=== PATIENT | female | born 1970 | race African-American/Black ===

== ENCOUNTER 2016-09-04 20:02 | Inpatient (IN) | payer MEDICAID, OTHER ==
[~2016-09-04] VITALS: Ht 177.8 cm; Wt 78.0 kg
[~2016-09-04 20:02] MED LIST: BACT800T5 PO; CLIN1CAP5 PO; FLUC10S PO
[2016-09-04 20:05] VITALS: BP 122/77; PULSE 98; RESP 16; TEMP 98.2; O2SAT 100
--- NOTE | 2016-09-04 20:14 | PD ---
HPI Chief Complaint: Lump, Cyst, Hernia Time Seen by Provider: 20:12 Travel History International Travel<30 days: No Contact w/Intl Traveler<30days: No Traveled to known affect area: No History of Present Illness HPI 46 year old female with PMH of MRSA presents to the ED for evaluation of 2 day history of warm, tender lump of the right breast. She denies fever, chills, nausea, vomiting. She states that she expressed a small amount of greenish drainage from the nipple. She has been treating with isopropyl alcohol a couple times a day without improvement of symptoms. The patient reports a greater than 10 year history of a benign lump in the 9 o'clock position of the same breast. She has not had a mammogram in "10 years or so." She currently has no primary care. PFSH Past Medical History Cancer: No Cardiovascular Problems: No Diabetes: No Diminished Hearing: No Endocrine: No Genitourinary: No Hepatitis: No Hiatal Hernia: No Immune Disorder: No Musculoskeletal: No Neurologic: No Psychiatric: No Reproductive: No Respiratory: No Thyroid Disease: No : 10 Para: 4 Miscarriage: 3 : 2 Dilation and Curettage (D&C): Yes (x 2) Past Surgical History AICD: No Body Medical Devices: NONE Section: Yes Gynecologic Surgery: Yes (D&C) Joint Replacement: No Pacemaker: No Other Surgery: Yes (cyst removed right breast years ago) Social History Alcohol Use: No Tobacco Use: No Substance Use: No Allergies-Medications (Allergen,Severity, Reaction): Coded Allergies: *MDRO Multi-Drug Resistant Organism (Unverified Adverse Reaction, Unknown , 09/04/16) MRSA Reported Meds & Prescriptions Reported Meds & Active Scripts Active Clindamycin Hcl (Clindamycin HCl) 150 Mg Cap 300 Mg PO Q8H 10 Days Bactrim DS (Sulfamethoxazole-Trimethoprim DS) 1 Tab Tab 1 Tab PO BID 10 Days Diflucan 10 mg/ml suspension (Fluconazole) 10 Mg/Ml Alice 150 Mg PO DAILY Take after antibiotics are completed. Review of Systems Except as stated in HPI: all other systems reviewed are Neg Physical Exam Narrative GENERAL: Well-nourished, well-developed pleasant black female in no acute distress. SKIN: Focused skin assessment warm/dry. There is warm, tender, mobile, firm mass in the 3 o'clock position, ~1 cm medial of the areola,~2cm below the skin level of the right breast which measures about 2.5 cm in diameter. No erythema , no nipple discharge. There is a subcentimeter erythematous macule in the same area which the patient states is unchanged for "years." HEAD: Normocephalic. EYES: No scleral icterus. No injection or drainage. NECK: Supple, trachea midline. No JVD or lymphadenopathy. CARDIOVASCULAR: Regular rate and rhythm without murmurs, gallops, or rubs. RESPIRATORY: Breath sounds clear and equal bilaterally. No accessory muscle use. GASTROINTESTINAL: Abdomen soft, non-tender, nondistended. Active bowel sounds. MUSCULOSKELETAL: No cyanosis, or edema. Ambulatory, moving spontaneously. BACK: Nontender without obvious deformity. No CVA tenderness. Data Data Last Documented VS Vital Signs Date Time Temp Pulse Resp B/P Pulse Ox O2 Delivery O2 Flow Rate FiO2 09/04/16 20:05 98.2 98 16 122/77 100 Room Air Orders Us Breast Unilateral (09/04/16 ) Complete Blood Count With Diff (09/04/16 20:20) Basic Metabolic Panel (Bmp) (09/04/16 20:20) Iv Access Insert/Monitor (09/04/16 20:23) Sodium Chlor 0.9% 1000 Ml Inj (Ns 1000 M (09/04/16 21:30) Iron/Tibc Profile (09/04/16 21:25) Type And Screen (09/04/16 21:25) Clindamycin Inj (Cleocin Inj) (09/04/16 21:30) Consult General Surgery (09/04/16 ) Admit Order (Ed Use Only) (09/04/16 21:25) Labs Laboratory Tests Test 09/04/16 20:30 White Blood Count 10.5 TH/MM3 Red Blood Count 4.28 MIL/MM3 Hemoglobin 6.8 GM/DL Hematocrit 23.6 % Mean Corpuscular Volume 55.2 FL Mean Corpuscular Hemoglobin 15.8 PG Mean Corpuscular Hemoglobin 28.6 % Concent Red Cell Distribution Width 19.1 % Platelet Count 218 TH/MM3 Mean Platelet Volume 8.8 FL Neutrophils (%) (Auto) 57.8 % Lymphocytes (%) (Auto) 29.4 % Monocytes (%) (Auto) 10.2 % Eosinophils (%) (Auto) 1.6 % Basophils (%) (Auto) 1.0 % Neutrophils # (Auto) 6.1 TH/MM3 Lymphocytes # (Auto) 3.1 TH/MM3 Monocytes # (Auto) 1.1 TH/MM3 Eosinophils # (Auto) 0.2 TH/MM3 Basophils # (Auto) 0.1 TH/MM3 CBC Comment AUTO DIFF Sodium Level 138 MEQ/L Potassium Level 3.6 MEQ/L Chloride Level 107 MEQ/L Carbon Dioxide Level 25.1 MEQ/L Anion Gap 6 MEQ/L Blood Urea Nitrogen 8 MG/DL Creatinine 0.92 MG/DL Estimat Glomerular Filtration 80 ML/MIN Rate Random Glucose 94 MG/DL Calcium Level 7.9 MG/DL MDM Medical Decision Making Medical Screen Exam Complete: Yes Emergency Medical Condition: Yes Differential Diagnosis Cellulitis versus abscess versus non-lactational mastitis versus breast mass versus breast cancer versus other Narrative Course 46 year old female with PMH of MRSA presents to the ED for evaluation of 2 day history of warm, tender lump of the right breast. She denies fever, chills, nausea, vomiting. She states that she expressed a small amount of greenish drainage from the nipple. She has been treating with isopropyl alcohol a couple times a day without improvement of symptoms. The patient reports a greater than 10 year history of a benign lump in the 9 o'clock position of the same breast. She has not had a mammogram in <10 yrs. Vitals reviewed. Physical exam reveals a pleasant black female in no acute distress. There is warm, tender, mobile, firm mass in the 3 o'clock position, ~ 2 cm medial of the areola, ~2cm deep in the right breast which measures about 2.5 cm in diameter. No erythema, no nipple discharge. There is a subcentimeter erythematous macule in the same area which the patient states is unchanged for "years." CBC: WBC 10.5, hemoglobin 6.8, hematocrit 23.6. CMP: Calcium 7.9. Ultrasound reveals a complex collection in the 3 o'clock position measuring 2.3 x 2.3 x 1 cm. I discussed the results of workup with the patient. She does report a history of anemia related to uterine fibroids. Last episode of menorrhagia was 3 months ago, menstrual period lasted 2-3 weeks. She states subsequent periods have lasted 5-6 days with "normal" flow since. LMP 08/08/16. She does report feeling chronically tired and weak. I discussed this patient with Dr. Gavin. We plan to admit her to the medicine service with general surgery consult. Discussed this plan with the patient who is agreeable. I spoke with Dr. Jaime. He will review the ultrasound, likely have IR perform aspiration tomorrow. Dr. Jung agrees to accept the patient to the medical service for observation. Please see their notes for disposition. Margie Shaffer September 04, 2016 20:14
[2016-09-04 20:22] LABS: MEAN CORPUSCULAR HGB CONC 28.6 % (32.0-36.0)
[2016-09-04 20:44] LABS: AUTOMATED NEUTROPHIL # 6.1 TH/MM3 (1.8-7.7); BASOPHIL # 0.1 TH/MM3 (0-0.2); EOSINOPHIL # 0.2 TH/MM3 (0-0.4); EOSINOPHIL % 1.6 % (0.0-4.0); HEMATOCRIT 23.6 % (35.0-46.0); LYMPH % 29.4 % (9.0-44.0); LYMPHOCYTE # 3.1 TH/MM3 (1.0-4.8); MEAN CELL VOLUME 55.2 FL (80.0-100.0); MEAN CORPUSCULAR HEMOGLOBIN 15.8 PG (27.0-34.0); MONO % 10.2 % (0.0-8.0); NEUT % 57.8 % (16.0-70.0); PLATELET COUNT 218 TH/MM3 (150-450); RED BLOOD COUNT 4.28 MIL/MM3 (4.00-5.30); RED CELL DISTRIBUTION WIDTH 19.1 % (11.6-17.2); WHITE BLOOD COUNT 10.5 TH/MM3 (4.0-11.0)
[2016-09-04 20:50] LABS: HEMO FLAGS AUTO DIFF
[2016-09-04 21:05] LABS: ANION GAP 6 MEQ/L (5-15); BICARBONATE 25.1 MEQ/L (21.0-32.0); BLOOD UREA NITROGEN 8 MG/DL (7-18); CHLORIDE 107 MEQ/L (98-107); GLOMERULAR FILTRATION RATE 80 ML/MIN (>89); POTASSIUM 3.6 MEQ/L (3.5-5.1); SODIUM (NA) 138 MEQ/L (136-145)
--- NOTE | 2016-09-04 21:14 | RADRPT ---
EXAM DATE/TIME: 09/04/2016 20:29 [facility] COMPARISON: No previous studies available for comparison. INDICATIONS : Right breast abscess. MEDICAL HISTORY : Lump in right breast. MRSA. SURGICAL HISTORY : Dilation and curettage. ENCOUNTER: Initial ACUITY: 2 days PAIN SCORE: 8/10 LOCATION: Right breast FINDINGS: Multiple sonographic images of the right breast were performed and demonstrate a small complex collec tion at 3 o'clock 1 cm from the right nipple measuring 2.3 x 2.3 x 1.0 cm in size. This may represen t a small abscess. Clinical correlation is recommended. CONCLUSION: Small focal complex subcutaneous collection at 3 o'clock 1 cm from the right nipple measuring 2.3 x 2 .3 x 1.0 cm raising the possibility of small subcutaneous abscess. Clinical correlation is recommend ed. Geoffrey Vyas MD on September 04, 2016 at 21:05 Board Certified Radiologist. This report was verified electronically.
[2016-09-04] MEDS ORDERED: SODIUM CHLOR 0.9% 1000 ML INJ 1,000 ML IV ONE ×2 (21:30→21:45)
[2016-09-04] MEDS ORDERED: CLINDAMYCIN INJ 900 MG in SODIUM CHLORIDE 0.9% INJ 100 ML IV ONE (21:30)
--- NOTE | 2016-09-04 21:38 | HHI.HP ---
HPI Service [facility] Primary Care Physician No Primary Care Physician Admission Diagnosis right breast abscess, anemia Diagnoses: (1) Breast abscess Diagnosis: Principal (2) Anemia Diagnosis: Principal (3) Dehydration Diagnosis: Principal Travel History International Travel<30 Days: No Contact w/Intl Traveler <30 Da: No Traveled to Known Affected Are: No History of Present Illness This is a 46-year-old female with a PMH of Fibroids and Anemia who presented to the ER w/ complaints of right breast lump w/ tenderness and drainage x2 days. Also reports green discharge from nipple. Denies fever, chills. History of similar symptoms in the past, however >10yrs ago. On arrival, BP 122/77, HR 98 , O2 sat 100% on RA, Afebrile. Hgb 6.8. GFR 80. Known h/o anemia, instructed to take Iron daily, however non-compliant. Denies h/o transfusion in the past, but reports heavy/long periods. Breast US w/ small focal complex 3 o'clock position w/ small abscess. Dr. Garrido consulted by ER physicianubaldo in am for I&D. S/p Clinda in ER. 2u pRBC ordered, pending transfusion. Review of Systems Except as stated in HPI: all other systems reviewed are Neg ROS: 14 point review of systems otherwise negative. Past Family Social History Past Medical History PMH: Fibroids and Anemia Past Surgical History PAST SURGICAL HISTORY: , D&C Allergies: Coded Allergies: *MDRO Multi-Drug Resistant Organism (Unverified Adverse Reaction, Unknown , 09/04/16) MRSA Family History PAST FAMILY HISTORY: Reviewed. No h/o DM or CAD Social History PAST SOCIAL HISTORY: Negative for alcohol, tobacco or drugs. Physical Exam Vital Signs Vital Signs Date Time Temp Pulse Resp B/P Pulse Ox O2 Delivery O2 Flow Rate FiO2 09/04/16 20:05 98.2 98 16 122/77 100 Room Air Physical Exam PE: GENERAL: Very pleasant middle-aged black female in no acute distress. HEENT: PERRLA, EOMI. No scleral icterus or conjunctival pallor. No lid lag or facial droop. CARDIOVASCULAR: Regular rate and rhythm. No obvious murmurs to auscultation. No chest tenderness to palpation. Right breast abscess, no drainage noted. RESPIRATORY: No obvious rhonchi or wheezing. Clear to auscultation. Breath sounds equal bilaterally. GASTROINTESTINAL: Abdomen soft, non-tender, nondistended. BS normal. MUSCULOSKELETAL: Extremities without clubbing, cyanosis, or edema. No obvious deformities. NEUROLOGICAL: Awake, alert and oriented x4. No focal neurologic deficits. Moving both upper and lower extremities spontaneously. Laboratory Laboratory Tests Test 09/04/16 20:30 White Blood Count 10.5 Red Blood Count 4.28 Hemoglobin 6.8 Hematocrit 23.6 Mean Corpuscular Volume 55.2 Mean Corpuscular Hemoglobin 15.8 Mean Corpuscular Hemoglobin 28.6 Concent Red Cell Distribution Width 19.1 Platelet Count 218 Mean Platelet Volume 8.8 Neutrophils (%) (Auto) 57.8 Lymphocytes (%) (Auto) 29.4 Monocytes (%) (Auto) 10.2 Eosinophils (%) (Auto) 1.6 Basophils (%) (Auto) 1.0 Neutrophils # (Auto) 6.1 Lymphocytes # (Auto) 3.1 Monocytes # (Auto) 1.1 Eosinophils # (Auto) 0.2 Basophils # (Auto) 0.1 CBC Comment AUTO DIFF Sodium Level 138 Potassium Level 3.6 Chloride Level 107 Carbon Dioxide Level 25.1 Anion Gap 6 Blood Urea Nitrogen 8 Creatinine 0.92 Estimat Glomerular Filtration 80 Rate Random Glucose 94 Calcium Level 7.9 Result Diagram: 09/04/16202909/04/162029 Assessment and Plan Problem List: (1) Breast abscess ICD Code: N61.1 Status: Acute (2) Anemia ICD Code: D64.9 Status: Acute (3) Dehydration ICD Code: E86.0 Status: Acute Assessment and Plan A/P: 1. Breast Abscess: Right Breast Abscess x2 days, reports green nipple discharge. Afebrile, no leukocytosis. Breast US w/ small focal complex at 3 o' clock position likely subcutaneous abscess, images reviewed by me. Dr. Garrido consulted by ER physician, will eval in am for I&D. S/p Clinda in ER, will continue w/ IV Abx. 2. Anemia: Microcytic, secondary to heavy/prolonged menstrual periods. Hgb 6.8. 2u pRBC ordered in ER, pending transfusion. Repeat labs following transfusion. Start Iron therapy. Will need outpatient follow-up w/ [employer] for eval of menstrual bleeding due to fibroid uterus. 3. Dehydration: GFR 80. BUN/Creatinine normal. IVF for hydration. Repeat labs in am. 4. DVT Prophylaxis: SCD/Teds. 5. Social work for d/c planning as needed. 6. Case discussed w/ ER physician at length. Kelsie Jung MD September 04, 2016 21:38
[2016-09-04 21:39] LABS: MEAN CORPUSCULAR HGB CONC 28.3 % (32.0-36.0)
[2016-09-04] MEDS ORDERED: ONDANSETRON HCL 4 MG/2 ML VIAL IVP PRN (21:45)
[2016-09-04] MEDS ORDERED: SODIUM CHLORIDE 0.9% FLUSH 10 ML FLUSH IV FLUSH PRN (21:45)
[2016-09-04] MEDS ORDERED: SENNOSIDES 8.6 MG TAB PO PRN (21:45)
[2016-09-04] MEDS ORDERED: ACETAMINOPHEN 325 MG TAB PO PRN (21:45)
[2016-09-04] MEDS ORDERED: MAGNESIUM HYDROXIDE SUSP 30 ML CUP PO PRN (21:45)
[2016-09-04] MEDS ORDERED: ACETAMINOPHEN/HYDROcodone 325 MG/5 MG TAB PO PRN (21:45)
[2016-09-04] MEDS ORDERED: ACETAMINOPHEN/HYDROcodone 325 MG/10 MG TAB PO PRN (21:45)
[2016-09-04] MEDS ORDERED: BISACODYL 10 MG SUPP RECTAL PRN (21:45)
[2016-09-04] MEDS ORDERED: LACTULOSE SYRUP 20 GM/30 ML CUP PO PRN (21:45)
[2016-09-04 22:16] LABS: PLATELET ESTIMATE SMEAR NORMAL (NORMAL); PLATELET MORPHOLOGY NORMAL (NORMAL); SCAN/DIFF AUTO DIFF CONFIRMED
[2016-09-04 23:20] VITALS: BP 110/69; PULSE 88; RESP 16; TEMP 98.9; O2SAT 100
[2016-09-04] MEDS ORDERED: LIDOCAINE 1%/EPINEPHrine 1:100,000 SOLN 50 ML VIAL ONE (23:25)
[2016-09-04 23:49] LABS: TRANSFERRIN IRON PROFILE 257 MG/DL (200-360)
[2016-09-04 23:53] VITALS: BP 126/71; PULSE 83; RESP 22; TEMP 99.6; O2SAT 100
[2016-09-05] VITALS (13 sets, daily range): BP systolic 95–125; BP diastolic 56–74; PULSE 65–82; RESP 16–22; TEMP 97–99; O2SAT 97–100
[2016-09-05] MEDS: CLINDAMYCIN INJ 900 MG in SODIUM CHLORIDE 0.9% INJ 100 ML IV SCH ×3 (05:30→22:57)
[2016-09-05 06:38] LABS: AUTOMATED NEUTROPHIL # 4.1 TH/MM3 (1.8-7.7); BASOPHIL # 0.1 TH/MM3 (0-0.2); BASOPHIL % 0.8 % (0.0-2.0); EOSINOPHIL # 0.1 TH/MM3 (0-0.4); LYMPH % 33.7 % (9.0-44.0); LYMPHOCYTE # 2.7 TH/MM3 (1.0-4.8); MEAN CELL VOLUME 55.5 FL (80.0-100.0); MEAN CORPUSCULAR HEMOGLOBIN 15.7 PG (27.0-34.0); MONO % 13.7 % (0.0-8.0); NEUT % 50.8 % (16.0-70.0); PLATELET COUNT 178 TH/MM3 (150-450); RED BLOOD COUNT 3.73 MIL/MM3 (4.00-5.30)
[2016-09-05 06:46] LABS: HEMO FLAGS DIFF FINAL
[2016-09-05 06:49] LABS: HEMATOCRIT 20.7 % (35.0-46.0)
[2016-09-05 06:56] LABS: MEAN CORPUSCULAR HGB CONC 29.8 % (32.0-36.0)
[2016-09-05 07:07] LABS: ALKALINE PHOSPHATASE 49 U/L (45-117); ALT (GPT) 12 U/L (10-53); ANION GAP 8 MEQ/L (5-15); AST (GOT) 12 U/L (15-37); BICARBONATE 22.4 MEQ/L (21.0-32.0); BLOOD UREA NITROGEN 7 MG/DL (7-18); CHLORIDE 111 MEQ/L (98-107); GLOMERULAR FILTRATION RATE 111 ML/MIN (>89); POTASSIUM 3.6 MEQ/L (3.5-5.1); SODIUM (NA) 141 MEQ/L (136-145); TOTAL BILIRUBIN ADULT 0.2 MG/DL (0.2-1.0)
--- NOTE | 2016-09-05 08:30 | MB ---
cc: RAJ LEVINE DATE OF CONSULTATION: 09/05/2016 PHYSICIAN REQUESTING CONSULTATION The emergency room physician, [address] REASON FOR CONSULTATION Right breast abscess. HISTORY OF PRESENT ILLNESS The patient is a 46-year-old female with no previous history of breast problems. However, she had a previous breast biopsy which was negative remotely, who developed swelling and pain in the medial portion 3 o'clock of her right breast. They thought this was an abscess and was putting heating pad, however, this continued to increase in pain and presented to the emergency department at [facility]. Upon evaluation the patient was found to be anemic and underwent admission to the medical service for anemia. General surgery is consulted for evaluation of the patient's right breast pain, possible abscess. Ultrasound of the breast showed subcutaneous abscess in the area. The patient's white blood cell count was within normal limits. Patient has been afebrile. REVIEW OF SYSTEMS 12-point review of systems was conducted with the patient today and was negative except for the pertinent positives mentioned above in history present illness. PAST MEDICAL HISTORY Anemia. PAST SURGICAL HISTORY and D&C. ALLERGIES None. FAMILY HISTORY No history of breast cancer or ovarian cancer. SOCIAL HISTORY The patient occasionally uses tobacco. Denies chronic use of tobacco. Denies drugs or alcohol use. PHYSICAL EXAMINATION VITAL SIGNS: Temperature 98.2 degrees, pulse 98, respiratory rate 16, blood pressure 122/77. GENERAL: The patient is a well-developed, well-nourished -[place] female in no acute distress. HEENT: Head is normocephalic, atraumatic. Pupils round, reactive to light and accomoodation. Sclerae is anicteric. Mucous membranes are moist. NECK: Neck is supple. No JVD. LUNGS: Clear to auscultation bilaterally. HEART: Regular rate and rhythm. ABDOMEN: Soft, nondistended. EXTREMITIES: No clubbing, cyanosis or edema. BREAST EXAM: Focal exam on the right breast was no masses or abnormalities, no nipple drainage. There is some hard, indurated area in the medial three o'clock portion of the right breast concerning for possible abscess versus clogged milk duct. The patient underwent aspiration by myself in the emergency department which revealed some proteinaceous clotting material without purulence. This was sent for culture. NEUROLOGIC: The patient is awake, alert, oriented x3. Nonfocal peripheral exam. Cranial nerves II-XII are grossly intact. ASSESSMENT/PLAN The patient is a 46-year-old -[place] female with anemia and right breast pain. The patient does not have a breast abscess as this was aspirated and it represents likely a clogged milk duct and mastitis without abscess formation. I do agree with empiric antibiotics and precautionary. I did discuss with the patient that this was unlikely an abscess but a milk duct problem and would likely need to follow up for this and provided my information to her. I also stated that although breast cancer is unlikely, that this has not been ruled out on our evaluation and will need follow-up with a primary care doctor and/or myself for appropriate imaging to rule out malignancy. She understands this and will followup with Dr. Oliveira or myself. Recommend continued dry gauze to the right breast as drainage continues and the patient can follow up with myself in 2 weeks. Thank you very much for this consultation. Call if needed, will be available, will sign off. MD MIKE Scott/TLL /7:16 AM /7:58 AM
--- NOTE | 2016-09-05 08:37 | HHI.PR ---
Subjective Remarks Follow up right breast abscess and anemia. Patient denies any active bleeding, last menstrual cycle was 08/13/16 and last 5 days, she states it was a normal flow for her. Last heavy month long cycle was May 2016. 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 Denies any black or red colored stools. States she is suppose to take iron supplements daily, but does not. She denies any pain to right breast, chest pain or sob. Objective Vitals Vital Signs Date Time Temp Pulse Resp B/P Pulse Ox O2 Delivery O2 Flow Rate FiO2 09/05/16 04:05 99.0 66 18 118/74 97 09/04/16 23:53 99.6 83 22 126/71 100 09/04/16 23:20 98.9 88 16 110/69 100 09/04/16 20:05 98.2 98 16 122/77 100 Room Air I/O 09/04/16 09/04/16 09/04/16 09/05/16 09/05/16 09/05/16 07:00 15:00 23:00 07:00 15:00 23:00 Intake Total 1900 ml Balance 1900 ml Intake Oral 200 ml IV Total 1700 ml # Voids 1 Result Diagram: 09/05/1662209/05/16622 Objective Remarks GENERAL: Very pleasant middle-aged black female in no acute distress. HEENT: PERRLA, EOMI. No scleral icterus or conjunctival pallor. No lid lag or facial droop. CARDIOVASCULAR: Regular rate and rhythm. No obvious murmurs to auscultation. No chest tenderness to palpation. BREAST: Right breast dressing D&I, no drainage noted. RESPIRATORY: No obvious rhonchi or wheezing. Clear to auscultation. Breath sounds equal bilaterally. GASTROINTESTINAL: Abdomen soft, non-tender, nondistended. BS normal. MUSCULOSKELETAL: Extremities without clubbing, cyanosis, or edema. No obvious deformities. NEUROLOGICAL: Awake, alert and oriented x4. No focal neurologic deficits. Moving both upper and lower extremities spontaneously. Medications and IVs Last Impressions Breast Ultrasound 09/04/16 0000 Signed Impressions: Service Date/Time: Sunday, September 04, 2016 20:29 - CONCLUSION: Small focal complex subcutaneous collection at 3 o'clock 1 cm from the right nipple measuring 2.3 x 2.3 x 1.0 cm raising the possibility of small subcutaneous abscess. Clinical correlation is recommended. Geoffrey Vyas MD A/P Problem List: (1) Breast abscess ICD Code: N61.1 Status: Acute (2) Anemia ICD Code: D64.9 Status: Acute (3) Dehydration ICD Code: E86.0 Status: Acute Assessment and Plan This is a 46-year-old female with a PMH of Fibroids and Anemia who presented to the ER w/ complaints of right breast lump w/ tenderness and drainage x2 days. Breast Abscess, needle aspiration completed in ED, no leukocytosis or fevers, per surgery likely a clogged milk duct and mastitis Breast US showed a right breast abscess 2.3 x2.3 x1.0 -Cont Clindamycin IV, pt states she usually gets a yeast infection after antibiotics, will need Diflucan post antibiotics -General surgery consulted, recommended continued dry gauze and follow up in 2 weeks -CBC in AM Anemia, chronic, patient in non compliant with iron supplements, hx of fibroids Hgb dropped from 6.8-->5.8, no active bleeding noted, iron low at 17 -Transfuse 3 units PRBCs, 1st is currently infusing, hgb post transfusion -Consult GI for possible GI bleed and recommendations, will await Hemoccult, if positive with do EGD/colon -Hemoccult pending -Follow up outpatient for fibroid treatment and pap smear -Ferritin level low, will reorder iron supplements post transfusions, along with Colace -Serial H&H DVT prophylaxis: SCDs Discharge Planning Pending GI work up and Hemoccult Susan Hines September 05, 2016 08:37
[2016-09-05] MEDS: DOCUSATE SODIUM 50 MG/SENNA 8.6 MG TAB PO SCH ×2 (09:00→21:00)
[2016-09-05] MEDS: SODIUM CHLORIDE 0.9% FLUSH 10 ML FLUSH IV FLUSH SCH ×2 (09:00→21:00)
--- NOTE | 2016-09-05 09:40 | PD.CONS ---
HPI History of Present Illness This is a 46 year old [lady] who presented to ER last night for right breast pain and lump. SHe was found to have a drop in Hgb from 6.8 to 5.9 over night. SHe is receiving blood. She says previously, May she bled vaginally for a month straight and that while the last 2 months have been okay, it has been a problem before. Denies hematemesis, blood in stool, blood on wipe, black stools. Pt says she has had heavy periods since a miscarriage and a "bad" d&c and found out she has fibroids and has had heavy periods since then, about 2 years. SHe admits anemia in the past and is admittedly noncompliant with Fe supplement. Denies change in bowel habits, diarrhea, constipation. Denies frequent ASA, NSAID use. Never had colonoscopy or endoscopy. 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 No h/o DM or CAD Social History occasional tobacco occasional etoh no illicit drug use (Heidi Trinidad) Review of Systems Constitutional: DENIES: Fever Eyes: DENIES: Blurred vision Ears, nose, mouth, throat: DENIES: Hearing loss Respiratory: DENIES: Cough Cardiovascular: DENIES: Chest pain Gastrointestinal: DENIES: Abdominal pain, Black stools, Bloody stools, Constipation, Diarrhea, Nausea, Vomiting, Hematemesis Genitourinary: DENIES: Hematuria Musculoskeletal: DENIES: Muscle aches Integumentary: DENIES: Abnormal pigmentation Hematologic/lymphatic: DENIES: Bruising Neurologic: DENIES: Abnormal gait Psychiatric: DENIES: Confusion (Heidi Trinidad) GI Exam Vitals I&O Vital Signs Date Time Temp Pulse Resp B/P Pulse Ox O2 Delivery O2 Flow Rate FiO2 09/05/16 04:05 99.0 66 18 118/74 97 09/04/16 23:53 99.6 83 22 126/71 100 09/04/16 23:20 98.9 88 16 110/69 100 09/04/16 20:05 98.2 98 16 122/77 100 Room Air I/O 09/04/16 09/04/16 09/04/16 09/05/16 09/05/16 09/05/16 07:00 15:00 23:00 07:00 15:00 23:00 Intake Total 1900 ml Balance 1900 ml Intake Oral 200 ml IV Total 1700 ml # Voids 1 Imaging Last Impressions Breast Ultrasound 09/04/16 0000 Signed Impressions: Service Date/Time: Sunday, September 04, 2016 20:29 - CONCLUSION: Small focal complex subcutaneous collection at 3 o'clock 1 cm from the right nipple measuring 2.3 x 2.3 x 1.0 cm raising the possibility of small subcutaneous abscess. Clinical correlation is recommended. Geoffrey Vyas MD Laboratory Test 09/04/16 09/04/16 09/05/16 09/05/16 20:30 23:05 06:15 06:23 White Blood Count 10.5 TH/MM3 8.0 TH/MM3 Red Blood Count 4.28 MIL/MM3 3.73 MIL/MM3 Hemoglobin 6.8 GM/DL 5.9 GM/DL Hematocrit 23.6 % 20.7 % Mean Corpuscular Volume 55.2 FL 55.5 FL Mean Corpuscular Hemoglobin 15.8 PG 15.7 PG Mean Corpuscular Hemoglobin 28.6 % 28.3 % Concent Red Cell Distribution Width 19.1 % 19.0 % Platelet Count 218 TH/MM3 178 TH/MM3 Mean Platelet Volume 8.8 FL 8.6 FL Neutrophils (%) (Auto) 57.8 % 50.8 % Lymphocytes (%) (Auto) 29.4 % 33.7 % Monocytes (%) (Auto) 10.2 % 13.7 % Eosinophils (%) (Auto) 1.6 % 1.0 % Basophils (%) (Auto) 1.0 % 0.8 % Neutrophils # (Auto) 6.1 TH/MM3 4.1 TH/MM3 Lymphocytes # (Auto) 3.1 TH/MM3 2.7 TH/MM3 Monocytes # (Auto) 1.1 TH/MM3 1.1 TH/MM3 Eosinophils # (Auto) 0.2 TH/MM3 0.1 TH/MM3 Basophils # (Auto) 0.1 TH/MM3 0.1 TH/MM3 CBC Comment AUTO DIFF DIFF FINAL Differential Comment AUTO DIFF CONFIRMED Platelet Estimate NORMAL Platelet Morphology Comment NORMAL Sodium Level 138 MEQ/L 141 MEQ/L Potassium Level 3.6 MEQ/L 3.6 MEQ/L Chloride Level 107 MEQ/L 111 MEQ/L Carbon Dioxide Level 25.1 MEQ/L 22.4 MEQ/L Anion Gap 6 MEQ/L 8 MEQ/L Blood Urea Nitrogen 8 MG/DL 7 MG/DL Creatinine 0.92 MG/DL 0.69 MG/DL Estimat Glomerular Filtration 80 ML/MIN 111 ML/MIN Rate Random Glucose 94 MG/DL 94 MG/DL Calcium Level 7.9 MG/DL 7.6 MG/DL Iron Level 17 MCG/DL Total Iron Binding Capacity 360 MCG/DL Percent Iron Saturation 4.7 % Blood Type AB POSITIVE Antibody Screen POSITIVE Prewarmed Antibody Screen NEGATIVE Direct Antiglobulin Test NEGATIVE ([place]) Crossmatch Leukocyte-Reduced Red Blood Cells Blood Bank Comment Antibody Identification Non-Specific Cold Agglutinin Total Bilirubin 0.2 MG/DL Aspartate Amino Transf 12 U/L (AST/SGOT) Alanine Aminotransferase 12 U/L (ALT/SGPT) Alkaline Phosphatase 49 U/L Total Protein 6.4 GM/DL Albumin 2.6 GM/DL Test 09/05/16 07:47 Blood Type AB POSITIVE Blood Bank Comment Physical Examination HEENT: EOMI; normocephalic; atraumatic; no jaundice. CHEST: CTA CARDIAC: Rrr ABDOMEN: Soft, nondistended, nontender; no hepatosplenomegaly; bowel sounds are present in all four quadrants. EXTREMITIES: No clubbing, cyanosis, or edema. SKIN: Normal; no rash; no jaundice. 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 (Heidi Trinidad) Assessment and Plan Plan ASSESSMENT - anemia - hypochromic, microcytic. dropped from 6.8 yesterday to 5.9 today. pt has hx fibroids and heavy periods in last year, May 2016 her period lasted a month. Denies hematochezia, hematemesis, tarry stools. Admits to chronic anemia and noncompliance with FE supplementation. Receiving blood transfusion. hemoccult pending. PLAN - await results hemoccult - if pos consider EGD/colonoscopy - f/u with production superintendent - monitor HH - transfuse as needed - supportive care This pt seen by myself and Dr Tom and this note is written on his behalf. 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 Will follow up with you. (Mely Tom MD) Heidi Trinidad September 05, 2016 09:40 Mely Tom MD September 05, 2016 11:50
[2016-09-05 10:36] LABS: FERRITIN 4 NG/ML (8-252)
[2016-09-05 18:40] LABS: HEMATOCRIT 30.4 % (35.0-46.0); MEAN CELL VOLUME 62.7 FL (80.0-100.0); MEAN CORPUSCULAR HEMOGLOBIN 18.7 PG (27.0-34.0); PLATELET COUNT 168 TH/MM3 (150-450); RED BLOOD COUNT 4.84 MIL/MM3 (4.00-5.30); RED CELL DISTRIBUTION WIDTH 28.9 % (11.6-17.2); WHITE BLOOD COUNT 7.7 TH/MM3 (4.0-11.0)
[2016-09-05 18:41] LABS: REVIEW FLAG FINAL
[2016-09-05 19:03] LABS: PROTHROMBIN TIME - PATIENT 10.6 SEC (9.8-11.6)
[2016-09-06] VITALS: BP 105/60; PULSE 70; RESP 19; TEMP 98.3; O2SAT 100
[2016-09-06 05:00] VITALS: BP 108/61; PULSE 69; RESP 18; TEMP 98.6; O2SAT 97
[2016-09-06] MEDS: CLINDAMYCIN INJ 900 MG in SODIUM CHLORIDE 0.9% INJ 100 ML IV SCH (05:10)
[2016-09-06 08:00] VITALS: BP 106/71; PULSE 63; RESP 18; TEMP 97.6; O2SAT 97
[2016-09-06] MEDS: DOCUSATE SODIUM 50 MG/SENNA 8.6 MG TAB PO SCH (08:05)
[2016-09-06] MEDS: SODIUM CHLORIDE 0.9% FLUSH 10 ML FLUSH IV FLUSH SCH (08:15)
[2016-09-06] MEDS ORDERED: FERROUS SULFATE 325 MG (65 MG ELEMENTAL IRON) TAB PO SCH (11:00)
[2016-09-06] MEDS ORDERED: SENN1TAB PO (11:04)
[2016-09-06] MEDS ORDERED: CLIN1CAP6 PO (11:04)
[2016-09-06] MEDS ORDERED: FERR325T20 PO (11:04)
[2016-09-06] MEDS ORDERED: HYDR-3516 PO (11:19)
[2016-09-06] MEDS ORDERED: DIFL150T PO (11:19)
[2016-09-06 12:00] VITALS: BP 112/67; PULSE 68; RESP 20; TEMP 97.9; O2SAT 100
[2016-09-06] MEDS ORDERED: CLINDAMYCIN 150 MG CAP PO SCH (12:00)
--- NOTE | 2016-09-06 16:53 | HHI.DS ---
cc: Talha Garrido MD Discharge Summary Admission Date September 05, 2016 at 07:45 Discharge Date: September 06, 2016 Admitting Diagnosis right breast abscess, anemia (1) Breast abscess ICD Code: N61.1 Diagnosis: Principal (2) Anemia ICD Code: D64.9 Diagnosis: Principal (3) Dehydration ICD Code: E86.0 Diagnosis: Principal Procedures Right breast abscess needle aspiration 09/05/16 Brief History - From Admission This is a 46-year-old female with a PMH of Fibroids and Anemia who presented to the ER w/ complaints of right breast lump w/ tenderness and drainage x2 days. Also reports green discharge from nipple. Denies fever, chills. History of similar symptoms in the past, however >10yrs ago. On arrival, BP 122/77, HR 98 , O2 sat 100% on RA, Afebrile. Hgb 6.8. GFR 80. Known h/o anemia, instructed to take Iron daily, however non-compliant. Denies h/o transfusion in the past, but reports heavy/long periods. Breast US w/ small focal complex 3 o'clock position w/ small abscess. Dr. Garrido consulted by ER physicianubaldo in am for I&D. S/p Clinda in ER. 2u pRBC ordered, pending transfusion. CBC/BMP: 09/06/16 1013 09/05/16 0623 Significant Findings Laboratory Tests Test 09/04/16 09/04/16 09/05/16 09/05/16 20:30 23:05 06:23 18:14 Hemoglobin 6.8 GM/DL 5.9 GM/DL 9.1 GM/DL (11.6-15.3) (11.6-15.3) (11.6-15.3) Hematocrit 23.6 % 20.7 % 30.4 % (35.0-46.0) (35.0-46.0) (35.0-46.0) Mean Corpuscular Volume 55.2 FL 55.5 FL 62.7 FL (80.0-100.0) (80.0-100.0) (80.0-100.0) Mean Corpuscular Hemoglobin 15.8 PG 15.7 PG 18.7 PG (27.0-34.0) (27.0-34.0) (27.0-34.0) Mean Corpuscular Hemoglobin 28.6 % 28.3 % 29.8 % Concent (32.0-36.0) (32.0-36.0) (32.0-36.0) Red Cell Distribution Width 19.1 % 19.0 % 28.9 % (11.6-17.2) (11.6-17.2) (11.6-17.2) Monocytes (%) (Auto) 10.2 % 13.7 % (0.0-8.0) (0.0-8.0) Monocytes # (Auto) 1.1 TH/MM3 1.1 TH/MM3 (0-0.9) (0-0.9) Estimat Glomerular Filtration 80 ML/MIN (>89) Rate Calcium Level 7.9 MG/DL 7.6 MG/DL (8.5-10.1) (8.5-10.1) Iron Level 17 MCG/DL (50-170) Percent Iron Saturation 4.7 % (20-50) Antibody Screen POSITIVE Red Blood Count 3.73 MIL/MM3 (4.00-5.30) Chloride Level 111 MEQ/L (98-107) Ferritin 4 NG/ML (8-252) Aspartate Amino Transf 12 U/L (15-37) (AST/SGOT) Albumin 2.6 GM/DL (3.4-5.0) Test 09/06/16 09/06/16 02:03 10:13 Hemoglobin 9.1 GM/DL 9.5 GM/DL (11.6-15.3) (11.6-15.3) Imaging Last Impressions Breast Ultrasound 09/04/16 0000 Signed Impressions: Service Date/Time: Sunday, September 04, 2016 20:29 - CONCLUSION: Small focal complex subcutaneous collection at 3 o'clock 1 cm from the right nipple measuring 2.3 x 2.3 x 1.0 cm raising the possibility of small subcutaneous abscess. Clinical correlation is recommended. Geoffrey Vyas MD PE at Discharge GENERAL: Very pleasant middle-aged black female in no acute distress. HEENT: PERRLA, EOMI. No scleral icterus or conjunctival pallor. No lid lag or facial droop. CARDIOVASCULAR: Regular rate and rhythm. No obvious murmurs to auscultation. No chest tenderness to palpation. BREAST: Right breast dressing D&I, no drainage noted. RESPIRATORY: No obvious rhonchi or wheezing. Clear to auscultation. Breath sounds equal bilaterally. GASTROINTESTINAL: Abdomen soft, non-tender, nondistended. BS normal. MUSCULOSKELETAL: Extremities without clubbing, cyanosis, or edema. No obvious deformities. NEUROLOGICAL: Awake, alert and oriented x4. No focal neurologic deficits. Moving both upper and lower extremities spontaneously. Pt update on day of discharge Patient seen and examined. Denies any active bleeding. Slight tenderness with palpation to right breast, no drainage. Denies any chest pain or sob. She is requesting a Diflucan at discharge, she states she always gets a yeast infection with antibiotic use. Patient is stable to be discharged. Hospital Course 46-year-old female with a PMH of Fibroids and Anemia who presented to the ER w/ complaints of right breast lump w/ tenderness and drainage x2 days. Breast Abscess, needle aspiration completed in ED by Dr. Garrido, no leukocytosis or fevers, per surgery likely a clogged milk duct and mastitis Breast US showed a right breast abscess 2.3 x2.3 x1.0, Received Clindamycin IV in hospital, Pt remained stable, discharged on Clindamycin PO 450mg Q6 for 13 days, She will follow up with surgery in 2 weeks. [place] rx 5/325 15 tabs given for pain management. Pt states she usually gets a yeast infection after antibiotics, Diflucan PO PRN given x 1 for post antibiotic use. Patient verbalizes understanding of medications and need for follow up. Patient admitted with Anemia, chronic, patient in non compliant with iron supplements, hx of fibroids, Hgb dropped from 6.8-->5.8, no active bleeding noted, iron low at 17. 3 units PRBCs were transfused. Hgb improved to 9.5 and remained stable. Iron supplements started 325mg BID, Instructed patient to take with laxative if constipation occurs. GI was consulted, Hemoccult negative, supportive care recommended. 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 Patient verbalizes understanding. Patient has remained stable for discharge. Pt Condition on Discharge: Stable Discharge Disposition: Discharge Home Discharge Time: > 30 minutes Discharge Instructions DIET: Follow Instructions for: As Tolerated, No Restrictions Activities you can perform: Regular-No Restrictions Follow up Referrals: [facility] - 2 Weeks PCP Follow-up - 2-3 Days Surgical - 2 Weeks with Talha Garrido MD New Medications: Clindamycin (Clindamycin) 300 Mg Cap 450 MG PO Q6H Infection Days 13 Ref 0 CAP Fluconazole (Diflucan) 150 Mg Tab 150 MG PO ONCE PRN yeast infection #1 Ref 0 TAB Ferrous Sulfate (Ferosul) 325 Mg Tablet 325 MG PO BID iron supplementation #60 Ref 0 TAB Hydrocodone-Acetaminophen (Hydrocodone-Acetaminophen) 5-325 mg Tab 1 TAB PO Q6HR PRN pain 5-10 #15 TAB Sennosides-Docusate Sodium (Senna Plus 8.6-50 mg) 1 Tab Tab 1 TAB PO BID Constipation #60 TAB Continued Medications: Fluconazole 10 mg/ml suspension (Diflucan 10 mg/ml suspension) 10 Mg/Ml [place] 150 MG PO DAILY Take after antibiotics are completed. #1 TAB Discontinued Medications: Clindamycin Hcl (Clindamycin Hcl) 150 Mg Cap 300 MG PO Q8H Days 10 CAP Sulfamethoxazole-Trimethoprim DS (Bactrim DS) 1 Tab Tab 1 TAB PO BID Days 10 TAB Susan Hines September 06, 2016 16:53
== END 2016-09-06 13:19 | disposition home or self-care (01) | DRG 601 ==
LOC: NEPC 20:02 → NEDA 21:31 → NEPGCP 23:43 → OBSVTOIN 09-05 07:45 → HOCA 09-05 16:41 → HOCB 09-05 16:59 → HOCA 09-05 17:02
PROVIDERS: ADMIT Internal Medicine; ATTEND Internal Medicine
PROC: 0H9T3ZZ Drainage of Right Breast, Percutaneous Approach (ICD-10-PCS; principal; 2016-09-04)
PROC: 30253N1 (ICD-10-PCS; 2016-09-05)
DX: N61.1 Abscess of the breast and nipple (principal); D25.9 Leiomyoma of uterus, unspecified; E86.0 Dehydration; D50.9 Iron deficiency anemia, unspecified; Z86.14 Personal history of Methicillin resistant Staphylococcus aureus infection; Z91.14 Patient's other noncompliance with medication regimen
CPT/HCPCS: 36430; 76642; 80048; 80053; 82272; 82728; 83540; 83550; 85018; 85025; 85027; 85384; 85610; 86077; 86850; 86870; 86880; 86900; 86901; 86922; 96374; J7030; P9016